=== PATIENT | female | born 1985 | race Caucasian/White ===

== ENCOUNTER 2018-02-15 19:35 | Emergency (ER) | payer SELFPAY ==
[2018-02-15] MEDS ORDERED: DEXAMETHASONE 4 MG TAB ONE (21:16)
[2018-02-15] MEDS ORDERED: FAMOTIDINE 20 MG TAB ONE (21:17)
[2018-02-15] MEDS ORDERED: hydrOXYzine HCl 25 MG TAB ONE (21:17)
[2018-02-15] MEDS ORDERED: MUPIROCIN 2% OINT 22GM TUBE TOP ONE (21:18)
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
--- NOTE | 2018-02-15 22:15 | ER ---
Nurse's Notes [facility] Name: Nancie Rockwell Age: 32 yrs Sex: Female : 1985 Arrival Date: 02/15/2018 Time: 19:36 Bed 15 Private MD: Diagnosis: Allergy status to drugs, medicaments and biological substances-Sulfa Presentation: 02/15 19:54 Presenting complaint: Patient states: Taking bactrim for 1 week. Reports redness and aj itching that started today. Transition of care: patient was not received from another setting of care. Onset: The symptoms/episode began/occurred acutely, today. Anaphylaxis evaluation, no signs or symptoms of anaphylaxis were noted. Onset of symptoms was February 15, 2018. Initial Sepsis Screen: Does the patient meet any 2 criteria? No. Patient's initial sepsis screen is negative. Does the patient have a suspected source of infection? No. Patient's initial sepsis screen is negative. Care prior to arrival: None. 19:54 Method Of Arrival: Ambulatory aj 19:54 Acuity: MIGUEL ANGEL 3 aj Triage Assessment: 19:55 General: Appears in no apparent distress. comfortable, Behavior is calm, cooperative, aj appropriate for age. Pain: Denies pain. Neuro: Level of Consciousness is awake, alert, obeys commands, Oriented to person, place, time, situation, Appropriate for age. Respiratory: Airway is patent Respiratory effort is even, unlabored, Respiratory pattern is regular, symmetrical. Derm: Skin is intact, is healthy with good turgor, Skin is pink, warm \T\ dry. normal, Rash noted that is itchy, red, on face, chest, abdomen, right hand, left hand, right arm and left arm. 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 - Social history:: Smoking status: Patient uses tobacco products, smokes one pack cigarettes per day. Screenin:10 Abuse screen: Denies threats or abuse. Nutritional screening: No deficits noted. mg2 Tuberculosis screening: No symptoms or risk factors identified. Fall Risk None identified. Assessment: 20:05 General: Appears uncomfortable, Behavior is calm, cooperative, Reports itchiness/rashes mg2 all over the body. Pain: Denies pain. Neuro: Level of Consciousness is awake, alert, obeys commands, Oriented to person, place, time. Cardiovascular: Capillary refill < 3 seconds Patient's skin is warm and dry. Respiratory: Airway is patent Respiratory effort is even, unlabored, Respiratory pattern is regular, symmetrical. GI: Reports lower abdominal pain. : No signs and/or symptoms were reported regarding the genitourinary system. EENT: No signs and/or symptoms were reported regarding the EENT system. Derm: Skin is intact, Skin is red, Rash noted that is itchy, red. Musculoskeletal: No signs and/or symptoms reported regarding the musculoskeletal system. Vital Signs: 19:55 BP 122 / 89; Pulse 110; Resp 22; Temp 98.2; Pulse Ox 97% on R/A; Weight 77.11 kg; aj Height 5 ft. 3 in. (160.02 cm); 22:12 BP 132 / 90; Pulse 92; Resp 16; Pulse Ox 97% on R/A; Pain 0/10; aa1 19:55 Body Mass Index 30.11 (77.11 kg, 160.02 cm) aj ED Course: 19:36 Patient arrived in ED. ds1 19:55 Triage completed. aj 19:55 Arm band placed on right wrist. Patient placed in an exam room. aj 20:01 Evelio Moreland, RN is Primary Nurse. mg2 20:10 Patient has correct armband on for positive identification. Bed in low position. Door mg2 closed. 20:41 Crissy Navarro FNP-C is [facility]. snw 20:41 Zay Magana MD is Attending Physician. snw 22:00 No provider procedures requiring assistance completed. Patient did not have IV access mg2 during this emergency room visit. Administered Medications: 21:24 Drug: Pepcid 20 mg Route: PO; mg2 22:00 Follow up: Response: No adverse reaction; Pain is decreased mg2 21:25 Drug: Atarax 50 mg Route: PO; mg2 22:00 Follow up: Response: No adverse reaction; Other; itchiness relieved mg2 21:25 Drug: Decadron 8 mg Route: PO; mg2 22:00 Follow up: Response: No adverse reaction mg2 21:25 Drug: Bactroban Ointment 2 % 1 application Route: Topical; Site: wound; mg2 Intake: Outcome: 22:15 Discharge ordered by MD. haque 22:42 Discharged to home ambulatory, with family. mg2 22:42 Condition: stable 22:42 Discharge instructions given to patient, family, Instructed on discharge instructions, follow up and referral plans. Demonstrated understanding of instructions, follow-up care, medications, Prescriptions given X 2. 22:42 Patient left the ED. mg2 Signatures: Milena Torres RN RN aa1 Mariela Osuna RN RN aj Crissy Navarro, COMMERCIAL FRONT LOAD DRIVER-C COMMERCIAL FRONT LOAD DRIVER-Csnw Alida George ds1 Evelio Moreland RN RN mg2 Corrections: (The following items were deleted from the chart) 0503 02:16 0502 20:05 Respiratory: Airway is patent Respiratory effort is even, unlabored, mg2 Respiratory pattern is regular, symmetrical, mg2
[2018-02-15 22:47] VITALS: TEMP 98.2; O2SAT 97
[2018-02-15 22:48] VITALS: BP 132/90
== END 2018-02-15 22:42 | disposition home or self-care (01) ==
LOC: ER 19:35
DX: T37.0X5A Adverse effect of sulfonamides, initial encounter (principal); Y92.9 Unspecified place or not applicable; Z88.6 Allergy status to analgesic agent; Z88.0 Allergy status to penicillin; Z91.040 Latex allergy status
CPT/HCPCS: 99283

== ENCOUNTER 2018-05-11 18:24 | Emergency (ER) | payer SELFPAY ==
[2018-05-11 19:42] LABS: Urine Amorphous Sediment 3+ /HPF (NONE SEEN); Urine Bacteria <20 /HPF (<20); Urine Culture Reflex Order REFLEXED; Urine Mucus 1+ /HPF (NONE SEEN)
[2018-05-11] MEDS ORDERED: MORPHINE 4 MG/ML SYR ONE (19:50)
[2018-05-11] MEDS ORDERED: NA CHLORIDE 0.9% 1,000 ML ONE (19:51)
[2018-05-11] MEDS ORDERED: DIPHENHYDRAMINE 50 MG/ML VIAL ONE (19:51)
[2018-05-11] MEDS ORDERED: ONDANSETRON 4 MG/2 ML VIAL ONE (19:51)
[2018-05-11 19:53] LABS: ALT/SGPT 19 U/L (12-78); AST/SGOT 13 U/L (15-37); Albumin 3.4 g/dL (3.4-5.0); Alkaline Phosphatase 111 U/L (45-117); Amylase Level 42 U/L (25-115); BUN Blood Urea Nitrogen 8 mg/dL (7-18); Bicarbonate 26 mmol/L (21-32); Bilirubin Direct < 0.1 mg/dL (0-0.2); Bilirubin Total 0.2 mg/dL (0.2-1.0); Glucose Level 105 mg/dL (74-106); Lipase 96 U/L (73-393); Potassium 3.8 mmol/L (3.5-5.1); Protein, Total 6.4 g/dL (6.4-8.2); Sodium Level 143 mmol/L (136-145)
--- NOTE | 2018-05-11 20:07 | RAD REPORT ---
EXAM DESCRIPTION: CT - Stone Protocol - 05/11/2018 7:55 pm CLINICAL HISTORY: Flank pain. left abdominal pain;Nausea / vomiting COMPARISON: CTSTONE PROTOCOL dated 06/22/2012 TECHNIQUE: Axial images were obtained without oral or IV contrast. Lack of contrast limits solid org an and vascular assessment. The [id number] spans the entirety of the system partially obscuring uppermost abdomen and lung bases. Coronal reformatted images were obtained and reviewed. All CT scans are performed using dose optimization technique as appropriate and may include automated exposure control or mA/KV adjustment according to patient size. FINDINGS: The lower lung reilly are clear. Imaged portions of the liver and spleen show no suspicious findings on non-contrast imaging.Cholecyst ectomy clips. The pancreas and adrenal glands are normal. No pathologic lymphadenopathy in the abdome n or pelvis. 6 millimeter calculus (810 HU) is present at the right UPJ resulting in minimal right-sided hydroneph rosis. Additional small calculi are present in both kidneys, on the right midpole the largest measure s 4 mm. On the left the largest is in the inferior pole measuring 2 mm. No bowel obstruction, free air, free fluid or abscess. Normal appendix noted. No significant bony abnormality. IMPRESSION: 6 mm calculus (810 HU) at the right UPJ is present with minimal right hydronephrosis. Additional bilateral nephrolithiasis.
[2018-05-11 20:20] LABS: Urine Blood 1+ (NEG); Urine Glucose NEGATIVE (NEG); Urine Protein 1+ (NEG); Urine pH >8.5 (5.0-7.0)
[2018-05-11 20:46] LABS: Absolute Lymphocytes (CBC) 2.8 K/uL (0.7-4.9); Absolute Monocytes 0.8 K/uL (0.1-1.3); Absolute Neutrophil 7.2 K/uL (1.8-8.0); Basophils % 0.2 % (0-1.3); Eosinophils % 1.3 % (0-4.4); Hematocrit 37.7 % (36.0-45.0); Lymphocytes % 25.6 % (15.3-44.8); MCH 30.8 pg (27.0-35.0); MCV 89.5 fL (80-100); MPV 11.1 fL (7.6-11.3); Monocytes % 7.1 % (3.3-12.3); RBC Red Blood Cell Count 4.21 M/uL (3.86-4.86)
--- NOTE | 2018-05-11 20:49 | EDPHYS ---
Physician Documentation [facility] Name: Nancie Rockwell Age: 32 yrs Sex: Female : 1985 Arrival Date: 05/11/2018 Time: 18:27 Bed 25 Private MD: None, None ED Physician Brendan Carney HPI: 05/11 19:19 This 32 yrs old Female presents to ER via Ambulatory with complaints of cp Pelvic Pain, Back Pain. 19:19 Onset: The symptoms/episode began/occurred yesterday. cp 19:20 The patient presents with abdominal pain in the lower abdomen, left worse than right. cp 19:20 The symptoms radiate to Associated signs and symptoms: Pertinent positives: nausea, cp Pertinent negatives: blood in stools, chest pain, constipation, diarrhea, fever, vaginal discharge, active vomiting. The symptoms are described as waxing/waning. Modifying factors: the symptoms are aggravated by movement, pressure. 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 - Social history:: Smoking status: Patient uses tobacco products, smokes one pack cigarettes per day. Patient uses alcohol, weekly. - Ebola Screening: : Patient negative for fever greater than or equal to 101.5 degrees Fahrenheit, and additional compatible Ebola Virus Disease symptoms Patient denies exposure to infectious person Patient denies travel to an Ebola-affected area in the 21 days before illness onset. ROS: 19:25 Constitutional: Negative for body aches, chills, fever, poor PO intake. cp 19:25 Eyes: Negative for injury, pain, redness, and discharge. cp 19:25 ENT: Negative for drainage from ear(s), ear pain, sore throat, difficulty swallowing, difficulty handling secretions. 19:25 Cardiovascular: Negative for chest pain, edema, palpitations. 19:25 Respiratory: Negative for cough, shortness of breath, wheezing. 19:25 Abdomen/GI: Positive for abdominal pain, nausea, Negative for vomiting, diarrhea, constipation, anorexia, black/tarry stool, rectal bleeding. 19:25 Back: Positive for radiated pain. 19:25 : Negative for burning with urination, vaginal bleeding, vaginal discharge. 19:25 Skin: Negative for cellulitis, rash. 19:25 Neuro: Negative for altered mental status, headache, weakness. 19:25 All other systems are negative. Exam: 19:32 Constitutional: The patient appears in no acute distress, alert, awake, non-toxic, well cp developed, well nourished, uncomfortable. 19:32 Head/Face: Normocephalic, atraumatic. Eyes: Pupils equal round and reactive to light, cp extra-ocular motions intact. Lids and lashes normal. Conjunctiva and sclera are non-icteric and not injected. Cornea within normal limits. Periorbital areas with no swelling, redness, or edema. ENT: Nares patent. No nasal discharge, no septal abnormalities noted. Tympanic membranes are normal and external auditory canals are clear. Oropharynx with no redness, swelling, or masses, exudates, or evidence of obstruction, uvula midline. Mucous membranes moist. Neck: Trachea midline, no thyromegaly or masses palpated, and no cervical lymphadenopathy. Supple, full range of motion without nuchal rigidity, or vertebral point tenderness. No Meningismus. Chest/axilla: Normal chest wall appearance and motion. Nontender with no deformity. No lesions are appreciated. 19:32 Cardiovascular: Rate: tachycardic, Rhythm: regular. 19:32 Respiratory: the patient does not display signs of respiratory distress, Respirations: normal, no use of accessory muscles, no retractions, no splinting, no tachypnea, labored breathing, is not present, Breath sounds: are clear throughout, no decreased breath sounds, no stridor, no wheezing. 19:32 Abdomen/GI: Inspection: abdomen appears normal, Bowel sounds: active, all quadrants, Palpation: soft, in all quadrants, moderate abdominal tenderness, in the right lower quadrant and left lower quadrant, rebound tenderness, is not appreciated, voluntary guarding, is elicited in the right lower quadrant and left lower quadrant, involuntary guarding, is not appreciated. 19:32 Back: pain, that is moderate, of the low back area, ROM is painful. 19:32 Skin: cellulitis, is not appreciated, no rash present. 19:32 Neuro: Orientation: to person, place \T\ time. Mentation: lucid, able to follow commands, Cerebellar function: is grossly normal, Motor: moves all fours, strength is normal, Sensation: no obvious gross deficits. Vital Signs: 18:39 BP 134 / 93; Pulse 100; Resp 18; Temp 98.4(TE); Pulse Ox 98% on R/A; Weight 77.11 kg; hj Height 5 ft. 3 in. (160.02 cm); Pain 7/10; 21:10 BP 114 / 63; Pulse 66; Resp 18; Pulse Ox 100% on R/A; tl3 18:39 Body Mass Index 30.11 (77.11 kg, 160.02 cm) hj MDM: 19:00 Patient medically screened. cp 20:00 Differential diagnosis: appendicitis, bowel obstruction, diverticulitis, Ectopic cp , Endometriosis, gastritis, Ovarian Torsion, Peritonitis, Pelvic Inflammatory Disease, Pyelonephritis, Ureterolithiasis, urinary tract infection. 20:47 Data reviewed: vital signs, nurses notes, lab test result(s), radiologic studies, CT cp scan. 20:47 Counseling: I had a detailed discussion with the patient and/or guardian regarding: the cp historical points, exam findings, and any diagnostic results supporting the discharge/admit diagnosis, lab results, radiology results, the need for outpatient follow up, a urologist, to return to the emergency department if symptoms worsen or persist or if there are any questions or concerns that arise at home. Response to treatment: the patient's symptoms have markedly improved after treatment, VSS. Pain markedly improved with meds. Will discharge to home for continued monitoring. 05/11 19:22 Order name: Amylase, Serum; Complete Time: 20:16 cp 05/11 19:22 Order name: Basic Metabolic Panel; Complete Time: 20:16 cp 05/11 20:19 Interpretation: Normal except: CL 110; CA 8.3. cp 05/11 19:22 Order name: CBC with Diff cp 05/11 19:22 Order name: Creatinine for Radiology; Complete Time: 20:16 cp 05/11 19:22 Order name: Hepatic Function; Complete Time: 20:16 cp 05/11 19:22 Order name: Lipase; Complete Time: 20:16 cp 05/11 19:22 Order name: Urine Microscopic Only; Complete Time: 20:16 cp 05/11 20:16 Interpretation: Normal except: UWBC 5-10; URBC 10-20; SQEPI 5-10; AMORPH 3+. 05/11 19:22 Order name: CT Stone Protocol; Complete Time: 20:16 05/11 19:32 Order name: Urine Dipstick--Ancillary (enter results); Complete Time: 20:28 [facility] 05/11 20:28 Interpretation: Normal except: UBLD 1+; UPROT 1+; UESTR TRACE. 05/11 19:33 Order name: Urine --Ancillary (enter results); Complete Time: 20:28 [facility] 05/11 19:44 Order name: Urine Culture EDMN 05/11 19:00 Order name: Urine Dipstick-Ancillary (obtain specimen); Complete Time: 19:20 05/11 19:00 Order name: Urine Test (obtain specimen); Complete Time: 19:20 05/11 19:22 Order name: IV Saline Lock; Complete Time: 19:49 05/11 19:22 Order name: Labs collected and sent; Complete Time: 19:49 05/11 20:28 Order name: PO challenge; Complete Time: 21:04 cp Administered Medications: 20:09 Drug: Zofran 4 mg Route: IVP; Site: right wrist; tl3 21:38 Follow up: Response: No adverse reaction tl3 20:09 Drug: Benadryl 12.5 mg Route: IVP; Infused Over: 3 mins; Site: right wrist; tl3 21:38 Follow up: Response: No adverse reaction tl3 20:09 Drug: NS 0.9% 1000 ml Route: IV; Rate: 1 bolus; Site: right wrist; Delivery: Primary tl3 tubing; 21:38 Follow up: IV Status: Completed infusion; IV Intake: 1000ml tl3 20:10 Drug: morphine 2 mg Route: IVP; Infused Over: 3 mins; Site: right wrist; tl3 21:02 Drug: Rocephin 1 grams {Note: ivp.} Route: IV; Rate: calculated rate; Site: right tl3 forearm; Delivery: Primary tubing; 21:04 Follow up: IV Status: Completed infusion; IV Intake: 20ml tl3 21:04 Drug: Flomax 0.4 mg Route: PO; tl3 21:06 Follow up: Response: No adverse reaction tl3 21:05 Drug: TORadol 30 mg Route: IVP; Site: right forearm; tl3 22:04 Follow up: Response: No adverse reaction tl3 21:05 Drug: Magnesium Sulfate 1 grams Route: IVPB; Infused Over: 1 hrs; Site: right forearm; tl3 22:04 Follow up: IV Status: Completed infusion; IV Intake: 100ml tl3 Disposition: 05/11/18 20:48 Discharged to Home. Impression: Calculus of kidney with calculus of ureter - Right. - Condition is Stable. - Discharge Instructions: Kidney Stones, Renal Colic. - Prescriptions for Zofran 4 mg Oral Tablet - take 1 tablet by ORAL route every 12 hours As needed; 20 tablet. Flomax 0.4 mg Oral Capsule, Sust. Release 24 hr - take 1 capsule by ORAL route once daily As needed 1/2 hour following the same meal each day; 7 capsule. Cipro 500 mg Oral Tablet - take 1 tablet by ORAL route every 12 hours for 7 days; 14 tablet. Tramadol 50 mg Oral Tablet - take 1 tablet by ORAL route every 8 hours as needed; 20 tablet. ketorolac 10 mg Oral tablet - take 1 tablet by ORAL route every 6 hours As needed not to exceed 40 mg in 24hrs; 15 tablet. - Medication Reconciliation Form, Thank You Letter, Antibiotic Education, Prescription Opioid Use, Work release form form. - Follow up: Arturo Davenport MD; When: 1 - 2 days; Reason: call office in morning for follow-up appointment. Addendum: 05/16/2018 20:22 Co-signature as Attending Physician, Brendan Carney MD I agree with the assessment and w a plan of care. Signatures: Dispatcher [employer] EDMN Júnior Chase RN RN Zay Breaux PA PA cp Appiah, William, MD MD wa Lowrey, Tammy, RN RN tl3 Corrections: (The following items were deleted from the chart) 05/11 20:19 20:16 Normal except: CL 110. cp cp 21:50 20:48 05/11/2018 20:48 Discharged to Home. Impression: Calculus of kidney with calculus tl3 of ureter - Right. Condition is Stable. Forms are Medication Reconciliation Form, Thank You Letter, Antibiotic Education, Prescription Opioid Use. Follow up: Arturo Davenport; When: 1 - 2 days; Reason: call office in morning for follow-up appointment. cp
--- NOTE | 2018-05-11 20:49 | ER ---
Nurse's Notes [facility] Name: Nancie Rockwell Age: 32 yrs Sex: Female : 1985 Arrival Date: 05/11/2018 Time: 18:27 Bed 25 Private MD: None, None Diagnosis: Calculus of kidney with calculus of ureter-Right Presentation: 05/11 18:35 Presenting complaint: Patient states: i felt pain in my "ovary", suprapubic area, since hj yesterday and the pain radiates to the back, reports nausea and vomiting; denies fever and chills;. Transition of care: patient was not received from another setting of care. Onset of symptoms was May 11, 2018. Risk Assessment: Do you want to hurt yourself or someone else? Patient reports no desire to harm self or others. Initial Sepsis Screen: Does the patient meet any 2 criteria? No. Patient's initial sepsis screen is negative. Does the patient have a suspected source of infection? No. Patient's initial sepsis screen is negative. Care prior to arrival: None. 18:35 Method Of Arrival: Ambulatory 18:35 Acuity: MIGUEL ANGEL 3 Triage Assessment: 18:38 General: Appears in no apparent distress. uncomfortable, Behavior is calm, cooperative, hj appropriate for age. Pain: Complains of pain in suprapubic area Pain radiates to left low back and right low back Pain currently is 7 out of 10 on a pain scale. Musculoskeletal: Circulation, motion, and sensation intact. Capillary refill < 3 seconds. 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 - Social history:: Smoking status: Patient uses tobacco products, smokes one pack cigarettes per day. Patient uses alcohol, weekly. - Ebola Screening: : Patient negative for fever greater than or equal to 101.5 degrees Fahrenheit, and additional compatible Ebola Virus Disease symptoms Patient denies exposure to infectious person Patient denies travel to an Ebola-affected area in the 21 days before illness onset. Screenin:39 Abuse screen: Denies threats or abuse. Denies injuries from another. Nutritional hj screening: No deficits noted. Tuberculosis screening: No symptoms or risk factors identified. Fall Risk None identified. Assessment: 18:50 General: Appears distressed, uncomfortable, well groomed, well developed, well tl3 nourished, Behavior is calm, cooperative, appropriate for age. Pain: Complains of pain in back and right low back and left low back and pelvis and suprapubic area Pain currently is 9 out of 10 on a pain scale. Neuro: Level of Consciousness is awake, alert, obeys commands. Cardiovascular: Patient's skin is warm and dry. Respiratory: Airway is patent Respiratory effort is even, unlabored, Respiratory pattern is regular, symmetrical. GI: Abdomen is distended, Bowel sounds present X 4 quads. Abdomen is tender to palpation in left upper quadrant and left lower quadrant. GI: Reports upper abdominal pain, cramping, nausea. : Urine is clear. EENT: No signs and/or symptoms were reported regarding the EENT system. Derm: No signs and/or symptoms reported regarding the dermatologic system. Musculoskeletal: No signs and/or symptoms reported regarding the musculoskeletal system. 21:11 Reassessment: Patient appears in no apparent distress at this time. No changes from tl3 previously documented assessment. Patient and/or family updated on plan of care and expected duration. Pain level reassessed. Patient is alert, oriented x 3, equal unlabored respirations, skin warm/dry/pink. pt resting quietly, no needs at this time Mag Sulfate infusing without difficulty. Vital Signs: 18:39 BP 134 / 93; Pulse 100; Resp 18; Temp 98.4(TE); Pulse Ox 98% on R/A; Weight 77.11 kg; hj Height 5 ft. 3 in. (160.02 cm); Pain 7/10; 21:10 BP 114 / 63; Pulse 66; Resp 18; Pulse Ox 100% on R/A; tl3 18:39 Body Mass Index 30.11 (77.11 kg, 160.02 cm) hj Vitals: 21:10 Cardiac Rhythm Assessment Regular. tl3 ED Course: 18:27 Patient arrived in ED. mr 18:28 None, None is Private Physician. mr 18:37 Triage completed. hj 18:39 Arm band placed on right wrist. hj 18:41 Patient has correct armband on for positive identification. Placed in gown. Bed in low hj position. Call light in reach. Side rails up X 1. Adult w/ patient. 18:50 No provider procedures requiring assistance completed. Inserted saline lock: 20 gauge tl3 in right wrist, using aseptic technique. Blood collected. 18:51 Madeline Gilman, SEVERIANO is Primary Nurse. tl3 19:00 Zay Doyle PA is PHCP. cp 19:00 Frandy Starr MD is Attending Physician. cp 19:33 Patient moved to [place] via wheelchair. vr 19:49 Urine Culture Sent. tl3 19:54 CT completed. Patient tolerated procedure well. Patient moved back from [place]. nj 19:55 CT Stone Protocol In Process Unspecified. EDMS 20:19 Brendan Canrey MD is Attending Physician. cp 20:47 Arturo Davenport MD is Referral Physician. cp 22:05 IV discontinued, intact, bleeding controlled, No redness/swelling at site. Pressure tl3 dressing applied. Administered Medications: 20:09 Drug: Zofran 4 mg Route: IVP; Site: right wrist; tl3 21:38 Follow up: Response: No adverse reaction tl3 20:09 Drug: Benadryl 12.5 mg Route: IVP; Infused Over: 3 mins; Site: right wrist; tl3 21:38 Follow up: Response: No adverse reaction tl3 20:09 Drug: NS 0.9% 1000 ml Route: IV; Rate: 1 bolus; Site: right wrist; Delivery: Primary tl3 tubing; 21:38 Follow up: IV Status: Completed infusion; IV Intake: 1000ml tl3 20:10 Drug: morphine 2 mg Route: IVP; Infused Over: 3 mins; Site: right wrist; tl3 21:02 Drug: Rocephin 1 grams {Note: ivp.} Route: IV; Rate: calculated rate; Site: right tl3 forearm; Delivery: Primary tubing; 21:04 Follow up: IV Status: Completed infusion; IV Intake: 20ml tl3 21:04 Drug: Flomax 0.4 mg Route: PO; tl3 21:06 Follow up: Response: No adverse reaction tl3 21:05 Drug: TORadol 30 mg Route: IVP; Site: right forearm; tl3 22:04 Follow up: Response: No adverse reaction tl3 21:05 Drug: Magnesium Sulfate 1 grams Route: IVPB; Infused Over: 1 hrs; Site: right forearm; tl3 22:04 Follow up: IV Status: Completed infusion; IV Intake: 100ml tl3 Intake: 21:04 IV: 20ml; Total: 20ml. tl3 21:38 IV: 1000ml; Total: 1020ml. tl3 22:04 IV: 100ml; Total: 1120ml. tl3 Outcome: 20:48 Discharge ordered by MD. tomasa 21:50 Patient left the ED. tl3 22:05 Discharged to home ambulatory. tl3 22:05 Condition: stable 22:05 Discharge instructions given to patient, Instructed on discharge instructions, follow up and referral plans. medication usage, Demonstrated understanding of instructions, follow-up care, medications, Prescriptions given X 4. Signatures: Dispatcher [employer] EDMS Elizabeth Kirby mr OdellNelly Henry, RN RN Zay Breaux PA PA cp Jordan, Nathan nj Lowrey, Tammy, SEVERIANO RN tl3 Corrections: (The following items were deleted from the chart) 18:41 18:39 Pulse 100bpm; Resp 18bpm; Pulse Ox 98% RA; Temp 98.4F Temporal; 77.11 kg; Height hj 5 ft. 3 in.; BMI: 30.1; Pain 7/10; hj
[2018-05-11] MEDS ORDERED: KETOROLAC 30 MG/ML INJ ONE (20:55)
[2018-05-11] MEDS ORDERED: TAMSULOSIN 0.4 MG SR CAP ONE (20:55)
[2018-05-11] MEDS ORDERED: Magnesium Sulfate 1gm IVPB 1 GM/50 ML BAG IV ONE (20:55)
[2018-05-11] MEDS ORDERED: CEFTRIAXONE/SWI 1gm 1 GM/10 ML SYR ONE (20:56)
[2018-05-11 21:58] VITALS: TEMP 98.4
[2018-05-11 21:59] VITALS: BP 114/63; O2SAT 100
== END 2018-05-11 21:50 | disposition home or self-care (01) ==
LOC: ER 18:24
DX: N20.2 Calculus of kidney with calculus of ureter (principal); F17.210 Nicotine dependence, cigarettes, uncomplicated; Z88.0 Allergy status to penicillin; Z88.6 Allergy status to analgesic agent; Z91.040 Latex allergy status
CPT/HCPCS: 36415; 74176; 76377; 80048; 80076; 81003; 81015; 81025; 82150; 83690; 85025; 87086; 87088; 99284; J0696; J2405; J3475; J7030